=== PATIENT | male | born 1990 | race Caucasian/White ===

== ENCOUNTER 2019-04-22 23:43 | Emergency (ER) | payer SELFPAY ==
[2019-04-23 00:19] VITALS: BP 138/59
--- NOTE | 2019-04-23 01:25 | ER Document Report ---
ED Medical Screen (RME) - General Chief Complaint: Dog Bite Stated Complaint: DOG BITE Time Seen by Provider: 04/23/19 01:08 Primary Care Provider: ABDIRAHMAN MACKENZIE MD [Primary Care Provider] - Follow up as needed Notes: Patient is a 28-year-old male presents to the emergency department with chief complaint of lip laceration. Patient states that around 1030 tonight he bent down to give his girlfriend's dog a kiss when the dog bit his bottom lip. The girlfriend who is in the room states that the dog shots are up-to-date. Patient reports his tetanus shot is up-to-date. Patient reports a large vertical laceration in the middle of his bottom lip with continuous bleeding. Patient denies any other injury. TRAVEL OUTSIDE OF THE [place] IN LAST 30 DAYS: No - Related Data Allergies/Adverse Reactions: No Known Allergies Allergy (Verified 04/23/19 00:02) Physical Exam - Vital signs Vitals: Temp Pulse Resp BP Pulse Ox 97.6 F 76 16 138/59 H 97 04/23/19 00:17 04/23/19 00:17 04/23/19 00:17 04/23/19 00:17 04/23/19 00:17 - HEENT Notes: There is a 1.5-2 cm vertical laceration noted to the bottom of the left. There is a constant ooze of blood. Course - Re-evaluation Re-evalutation: 04/23/19 01:25 I have greeted and performed a rapid initial assessment of this patient. A comprehensive ED assessment and evaluation of the patient, analysis of test results and completion of the medical decision making process will be conducted by additional ED providers. - Vital Signs Vital signs: Temp Pulse Resp BP Pulse Ox 97.6 F 76 16 138/59 H 97 04/23/19 00:17 04/23/19 00:17 04/23/19 00:17 04/23/19 00:17 04/23/19 00:17 Doctor's Discharge - Discharge Referrals: ABDIRAHMAN MACKENZIE MD [Primary Care Provider] - Follow up as needed
[2019-04-23] MEDS ORDERED: LIDOCAINE 1% INJ-PF (10 MG/ML) 30 ML SDV INJ ONE (01:31)
[2019-04-23] MEDS ORDERED: PROMETHAZINE HCL 25 MG TABLET PO ONE (01:33)
[2019-04-23] MEDS ORDERED: AMOXICILLIN TR/POT CLAVULANATE 500-125 MG TAB PO ONE (01:33)
[2019-04-23] MEDS ORDERED: AMOXICILLIN TRIHYDRATE 500 MG CAPSULE PO ONE (01:33)
[2019-04-23] MEDS ORDERED: OXYCODONE-ACETAMINOPHEN 5-325 MG TABLET PO ONE (01:33)
[2019-04-23] MEDS ORDERED: DIPH/PERTUSS(ACELL)/TETANUS VAC/PF 0.5 ML SYR (>=10YO) IM ONE (01:49)
--- NOTE | 2019-04-23 02:36 | ER Document Report ---
ED Animal Bite - General Chief Complaint: Dog Bite Stated Complaint: DOG BITE Time Seen by Provider: 04/23/19 01:08 Notes: Patient is a 28-year-old male that comes emergency department for chief complaint of dog bite to the lower lip. Patient states that approximately 20-30 tonight he bent down to give his girlfriend stop the case and the dog bit his lip. Patient is up-to-date on his tetanus, however the dog is vaccinated and up-to-date per girlfriend at bedside. No other injuries reported. TRAVEL OUTSIDE OF THE [place] IN LAST 30 DAYS: No - Related Data Allergies/Adverse Reactions: No Known Allergies Allergy (Verified 04/23/19 00:02) Past Medical History - General Information source: Patient - Social History Smoking Status: Never Smoker Drug Abuse: None Lives with: Family Family History: Reviewed & Not Pertinent Surgical Hx: Negative - Immunizations Immunizations up to date: No Hx Diphtheria, Pertussis, Tetanus Vaccination: Yes Review of Systems - Review of Systems Constitutional: No symptoms reported EENT: See HPI Cardiovascular: No symptoms reported Respiratory: No symptoms reported Gastrointestinal: No symptoms reported Genitourinary: No symptoms reported Male Genitourinary: No symptoms reported Musculoskeletal: No symptoms reported Skin: See HPI Hematologic/Lymphatic: No symptoms reported Neurological/Psychological: No symptoms reported Physical Exam - Vital signs Vitals: Temp Pulse Resp BP Pulse Ox 97.6 F 76 16 138/59 H 97 04/23/19 00:17 04/23/19 00:17 04/23/19 00:17 04/23/19 00:17 04/23/19 00:17 - Notes Notes: GENERAL: Alert, interacts well. No acute distress. HEAD: Normocephalic, atraumatic. EYES: Pupils equal, round, and reactive to light. Extraocular movements intact. ENT: Superficial abrasions to the right upper lip. Inferior lip with a large laceration through the external lip into the internal lip, through the vermilion border, somewhat gaping. Approximately 2 cm in all. Tongue is normal. Oropharynx unremarkable. Airway patent. Nares patent, no nasal septal hematoma, TM's intact. NECK: Full range of motion. Supple. Trachea midline. LUNGS: Clear to auscultation bilaterally, no wheezes, rales, or rhonchi. No respiratory distress. HEART: Regular rate and rhythm. No murmur ABDOMEN: Soft, non-tender. Non-distended. EXTREMITIES: Moves all 4 extremities spontaneously. No edema, normal radial and dorsalis pedis pulses bilaterally. No cyanosis. BACK: no cervical, thoracic, lumbar midline tenderness. No saddle anesthesia, normal distal neurovascular exam. NEUROLOGICAL: Alert and oriented x3. Normal speech. Cranial nerves II through XII grossly intact. SKIN: Warm, dry, normal turgor. No rashes or lesions noted. Course - Re-evaluation Re-evalutation: Area was cleaned thoroughly. I did discuss with patient his options, I did off er to contact plastics to see if they would repair this. Patient declines. Patient requests that I repair this. Area was closed on the top and external aspect of the lower lip as much as possible with the best alignment I could, the inner aspect of the lip was not closed completely to reduce infection risk. Abrasions on the upper lip were not repaired. Patient was started on Augmentin, tetanus was updated, discussed care, follow-up, return precautions. Patient states understanding and agreement. - Vital Signs Vital signs: Temp Pulse Resp BP Pulse Ox 97.6 F 76 16 138/59 H 97 04/23/19 00:17 04/23/19 00:17 04/23/19 00:17 04/23/19 00:17 04/23/19 00:17 Procedures - Laceration/Wound Repair Lower lip Wound length (cm): 2 Wound's Depth, Shape: Irregular Laceration pre-procedure: Sterile PPE donned, Sterile drapes applied, Shur-Clens applied Anesthetic type: 1% Lidocaine Volume Anesthetic (mLs): 4 Wound explored: Clean, No foreign body removed Wound Repaired With: Sutures Suture Size/Type: 6:0, Nylon Number of Sutures: 9 Layer Closure?: No Post-procedure NV exam normal: Yes Complications: No Discharge - Discharge Clinical Impression: Dog bite Qualifiers: Encounter type: initial encounter Qualified Code(s): W54.0XXA - Bitten by dog, initial encounter Laceration of lower lip Qualifiers: Encounter type: initial encounter Qualified Code(s): S01.511A - Laceration wit hout foreign body of lip, initial encounter Disposition: HOME, SELF-CARE Additional Instructions: The sutures need to be removed in 5 to 7 days at a medical facility. Keep the area clean, clean with soap and water, dab dry. Avoid soaking. This may bleed slightly for the first couple of days. Take the antibiotic as prescribed to completion, I recommend taking a probiotic [id number] to avoid diarrhea with this. Follow-up with primary care. Return for any concerning symptoms including Increased swelling, developing redness or pain, discolored discharge, fever, or any other concerning symptoms. Prescriptions: Amox Tr/Potassium Clavulanate [Augmentin 875-125 Tablet] 1 tab PO BID 7 Days #14 tablet
== END 2019-04-23 02:58 | disposition home or self-care (01) ==
LOC: ER 23:43
PROC: 0CQ1XZZ Repair Lower Lip, External Approach (ICD-10-PCS; principal; 2019-04-22)
DX: S01.551A Open bite of lip, initial encounter (principal); W54.0XXA Bitten by dog, initial encounter
CPT/HCPCS: 99283; 90471; 90715; 12011; J3490